=== PATIENT | male | born 1995 | race Two or more races ===

== ENCOUNTER 2023-12-27 02:11 | Emergency (ER) | payer OTHER ==
[~2023-12-27] VITALS: Ht 167.6 cm; Wt 74.0 kg
[2023-12-27 02:45] VITALS: PULSE 85; RESP 17; TEMP 98.7
[2023-12-27] MEDS: HYDROCODONE/APAP 5MG-325MG TAB PO ONE (03:23)
[2023-12-27] MEDS ORDERED: ULTRAM 50MG50 MG PO (04:06)
[2023-12-27 05:06] VITALS: BP 106/68; PULSE 84; RESP 16; TEMP 98.4; O2SAT 98
== END 2023-12-27 05:40 | disposition home or self-care (01) ==
LOC: FSED 02:30
DX: S92.351A Displaced fracture of fifth metatarsal bone, right foot, initial encounter for closed fracture (principal); W17.89XA Other fall from one level to another, initial encounter; Y92.89 Other specified places as the place of occurrence of the external cause
CPT/HCPCS: 99284